=== PATIENT | female | born 1940 | race Caucasian/White ===

== ENCOUNTER 2021-06-30 12:26 | Emergency (ER) | payer MEDICARE ==
[~2021-06-30] VITALS: Ht 157.5 cm; Wt 64.0 kg
[~2021-06-30 12:26] MED LIST: ACETAMINOPHEN500 MG PO; ALLOPURINOL100 MG PO; ARMOUR THYROID90 MG PO; ASMANEX HFA13 G2 IH; CBD CREAM; DICLOFENAC SODI75 MG PO; GABAPENTIN300 MG PO; HYDROCODON-ACE1 EA10 PO; MOVE FREE ULTR1 EAC2 PO; OXYCODONE HCL5 MG PO; SINGULAIR10 MG PO; SPIRONOLACTONE1 EACH PO; SYMBICORT 16010.2 GM INH; XARELTO10 MG PO; XOPENEX0.63 MG/3 INH
== END 2021-06-30 16:40 | disposition home or self-care (01) ==
LOC: ED 12:26
DX: M79.89 Other specified soft tissue disorders (principal); J44.9 Chronic obstructive pulmonary disease, unspecified; E03.9 Hypothyroidism, unspecified; Z88.2 Allergy status to sulfonamides; Z88.8 Allergy status to other drugs, medicaments and biological substances; Z79.899 Other long term (current) drug therapy
CPT/HCPCS: 93971; 99283-25

== ENCOUNTER 2022-01-04 11:02 | Emergency (ER) | payer MEDICARE ==
[~2022-01-04] VITALS: Ht 157.5 cm; Wt 64.0 kg
--- OUTSIDE RECORDS SUMMARY | 2022-01-04 11:06 | XMS ---
PreManage Notification: ROYER ERNANDEZ Security Sales Secretary Events No recent Security Events currently on file [facility] There are no care providers on record at this time. Ziyad has no Care Guidelines for this patient. Rachelle VISIT COUNT (12 MO.) 2 [facility] Kelly TOTAL 2 NOTE: Visits indicate total known visits. ED/UCC VISIT TRACKING (12 MO.) 01/04/2022 11:03 [facility] [place] TYPE: Emergency COMPLAINT: - R HIP/LEG PAIN 06/30/2021 12:27 [facility] [place] TYPE: Emergency COMPLAINT: - LEG SWELLING DIAGNOSES: - Other chcf (current) drug therapy - Allergy status to sulfonamides - Chronic obstructive pulmonary disease, unspecified - Hypothyroidism, unspecified - Other specified soft tissue disorders - Pain in left leg - Allergy status to other drugs, medicaments and biological substances INPATIENT VISIT TRACKING (12 MO.) 06/27/2021 05:47 [facility] [place] TYPE: Surgery COMPLAINT: - LT TOTAL HIP REPLACEMENT DIAGNOSES: - Unilateral primary osteoarthritis, right hip [email or web address]
== END 2022-01-04 14:10 | disposition home or self-care (01) ==
LOC: ED 11:02
DX: S70.01XA Contusion of right hip, initial encounter (principal); W01.10XA Fall on same level from slipping, tripping and stumbling with subsequent striking against unspecified object, initial encounter; J44.9 Chronic obstructive pulmonary disease, unspecified; E03.9 Hypothyroidism, unspecified; Z88.2 Allergy status to sulfonamides; Z88.8 Allergy status to other drugs, medicaments and biological substances; Z79.899 Other long term (current) drug therapy
CPT/HCPCS: 73502; 99283-25

== ENCOUNTER 2022-05-12 19:40 | Emergency (ER) | payer MEDICARE ==
[~2022-05-12] VITALS: Ht 157.5 cm; Wt 71.8 kg
[~2022-05-12 19:40] MED LIST changes: +SENNA LAX8.6 MG PO; +VITAMIN C1000 MG PO
--- OUTSIDE RECORDS SUMMARY | 2022-05-12 19:42 | XMS ---
PreManage Notification: ROYER ERNANDEZ Security Engagement Quality Consultant Events No recent Security Events currently on file CRITERIA MET - [facility] There are no care providers on record at this time. Ziyad has no Care Guidelines for this patient. Rachelle VISIT COUNT (12 MO.) 3 MITCHEL Kelly TOTAL 3 NOTE: Visits indicate total known visits. ED/UCC VISIT TRACKING (12 MO.) 05/12/2022 19:40 [facility] [place] TYPE: Emergency COMPLAINT: - HAND SWELLING 01/04/2022 11:03 [facility] [place] TYPE: Emergency COMPLAINT: - R HIP/LEG PAIN DIAGNOSES: - Hypothyroidism, unspecified - Fall on same level from slipping, tripping and stumbling with subsequent striking against unspecified object, initial encounter - Chronic obstructive pulmonary disease, unspecified - Allergy status to sulfonamides - Allergy status to other drugs, medicaments and biological substances - Contusion of right hip, initial encounter - Pain in right hip - Other usp (current) drug therapy 06/30/2021 12:27 [facility]o [place] TYPE: Emergency COMPLAINT: - LEG SWELLING DIAGNOSES: - Allergy status to other drugs, medicaments and biological substances - Other specified soft tissue disorders - Chronic obstructive pulmonary disease, unspecified - Other usp (current) drug therapy - Pain in left leg - Hypothyroidism, unspecified - Allergy status to sulfonamides INPATIENT VISIT TRACKING (12 MO.) 06/27/2021 05:[address] [facility] [place] TYPE: Surgery COMPLAINT: - LT TOTAL HIP REPLACEMENT DIAGNOSES: - Unilateral primary osteoarthritis, right hip [email or web address]
[2022-05-12] MEDS ORDERED: BENZONATATE100 MG PO (19:55)
[2022-05-12] MEDS ORDERED: AMOX TR-K CLV1 EAC1 PO (19:58)
[2022-05-12] MEDS ORDERED: DOXYCYCLINE HY100 MG PO (21:08)
[2022-05-12] MEDS ORDERED: HYDROCODON-ACE1 EA10 PO (21:08)
[2022-05-13] MEDS ORDERED: OMEPRAZOLE20 MG PO (14:00)
[2022-05-13] MEDS ORDERED: SYMBICORT 16010.2 GM INH (14:01)
[2022-05-13] MEDS ORDERED: VITAMIN D325 MCG PO (14:03)
[2022-05-13] MEDS ORDERED: MOMETASONE FURO17 GM NAS (14:09)
[2022-05-13] MEDS ORDERED: LEVALBUTEROL TA15 GM INH (14:10)
== END 2022-05-12 22:32 | disposition home or self-care (01) ==
LOC: ED 19:40
DX: L03.113 Cellulitis of right upper limb (principal); J44.9 Chronic obstructive pulmonary disease, unspecified; M06.9 Rheumatoid arthritis, unspecified; Z88.2 Allergy status to sulfonamides; Z88.8 Allergy status to other drugs, medicaments and biological substances; Z79.899 Other long term (current) drug therapy; Z79.891 Long term (current) use of opiate analgesic
CPT/HCPCS: 36415; 73110; 73130; 80053; 85025; 85060; 90471; 90714; 96365; 99283-25; A9270; J3370; J7060

== ENCOUNTER 2022-05-13 09:41 | Inpatient (IN) | payer MEDICARE ==
[~2022-05-13] VITALS: Ht 157.5 cm; Wt 72.0 kg
[~2022-05-13 09:41] MED LIST changes: +AMOX TR-K CLV1 EAC1 PO; +BENZONATATE100 MG PO; +DOXYCYCLINE HY100 MG PO
--- OUTSIDE RECORDS SUMMARY | 2022-05-13 09:42 | XMS ---
PreManage Notification: ROYER ERNANDEZ Security Staff Rn Events No recent Security Events currently on file CRITERIA MET - [facility] - 2 Visits in 30 Days - [facility] PROVID[facility] There are no care providers on record at this time. Ziyad has no Care Guidelines for this patient. Rachelle VISIT COUNT (12 MO.) 4 [facility] 4 NOTE: Visits indicate total known visits. ED/C VISIT TRACKING (12 MO.) [facility] COMPLAINT: - EXTREMITY PAIN/INJURY 05/12/2022 19:40 [facility] [place] TYPE: Emergency COMPLAINT: - HAND SWELLING/NO INJ 01/04/2022 11:03 [facility] [place] TYPE: Emergency COMPLAINT: - R HIP/LEG PAIN DIAGNOSES: - Allergy status to other drugs, medicaments and biological substances - Contusion of right hip, initial encounter - Pain in right hip - Other intermediate manager (current) drug therapy - Hypothyroidism, unspecified - Fall on same level from slipping, tripping and stumbling with subsequent striking against unspecified object, initial encounter - Chronic obstructive pulmonary disease, unspecified - Allergy status to sulfonamides 06/30/2021 12:27 [facility] [place] TYPE: Emergency COMPLAINT: - LEG SWELLING DIAGNOSES: - Pain in left leg - Hypothyroidism, unspecified - Allergy status to sulfonamides - Allergy status to other drugs, medicaments and biological substances - Other specified soft tissue disorders - Chronic obstructive pulmonary disease, unspecified - Other intermediate manager (current) drug therapy INPATIENT VISIT TRACKING (12 MO.) 06/27/2021 05:[address] [facility] [place] TYPE: Surgery COMPLAINT: - LT TOTAL HIP REPLACEMENT DIAGNOSES: - Unilateral primary osteoarthritis, right hip [email or web address]
[2022-05-13] MEDS ORDERED: OMEPRAZOLE20 MG PO (14:00)
[2022-05-13] MEDS ORDERED: SYMBICORT 16010.2 GM INH (14:01)
[2022-05-13] MEDS ORDERED: VITAMIN D325 MCG PO (14:03)
[2022-05-13] MEDS ORDERED: MOMETASONE FURO17 GM NAS (14:09)
[2022-05-13] MEDS ORDERED: LEVALBUTEROL TA15 GM INH (14:10)
--- NOTE | 2022-05-13 14:10 | NUR ---
REPORT RECIEVED FROM DORINA
--- NOTE | 2022-05-13 14:36 | NUR ---
PT MOVED TO MED SURG STRETCHER. VS DONE. REINFORED USE OF CALL LIGHT AND WITHIN REACH. PURWICK PROVIDED DUE TO INCONTINCE. PT COMPLAINS OF PAIN MOSTLY TO LEFT HAND WITH MOVEMENT AND TOUCH, ELEVATED ON PILLOW. DAUGHTER AT BEDSIDE.
--- NOTE | 2022-05-13 16:15 | NUR ---
URINE SAMPLE ORDERED. STRAIGHT CATH URINE COLLECTED. PT TOLERATED WELL. 300MLS DARK, CLEAR, YELLOW URINE.
--- NOTE | 2022-05-13 16:15 | NUR ---
MED REC COMPLETE
--- NOTE | 2022-05-13 17:00 | NUR ---
pt provided ice water, denies further needs at this time. call light in reach.
--- NOTE | 2022-05-13 18:14 | NUR ---
PATIENT IN BED RESTING. VITALS AND I/O'S COMPLETED. PT HAS NO OTHER NEEDS AT THIS TIME. CALL LIGHT WITHIN REACH.
--- NOTE | 2022-05-13 18:50 | NUR ---
PT IN BED EATING DINNER. PT DENIES ANY NEEDS AT THIS TIME. CALL LIGHT WITHIN REACH.
--- NOTE | 2022-05-13 19:17 | NUR ---
RECEIVED REPORT FROM MARIELENA LEO RN. pt RESTING IN BED. REPORTS THAT HER PAIN IS "OKAY" RIGHT NOW AND DOES NOT WANT PAIN MEDICATION RIGHT NOW BUT WOULD LIKE SOMETHING LATER TONIGHT. NO FURTHER REQUESTS AT THIS TIME. CALL LIGHT WITHIN REACH.
--- NOTE | 2022-05-13 19:44 | NUR ---
PT. SOILED GOWN AND LINEN CHANGED APPROPRIATELY. PT. PROVIDED WITH FRESH WATER. CALL LIGHT LEFT WITHIN REACH. NO OTHER IMMEDIATE NEEDS AT THIS TIME.
--- NOTE | 2022-05-13 20:22 | NUR ---
PT. VITALS AND INAKE DOCUMENTED. CALL LIGHT LEFT WITHIN REACH. ROOM TIDIED. FRESH WATER PROVIDED. NO OTHER IMMEDIATE NEEDS AT THIS TIME.
--- NOTE | 2022-05-13 21:25 | NUR ---
ASSESSMENT DONE. pt AGREED TO GET UP TO VOID. pt REQUIRED 2PA TO EDGE OF BED. pt ABLE TO STAND AT BEDSIDE BUT UNSTEADY UNABLE TO AMBULATE SAFELY. ATTEMPTED 3 TIMES PER pt REQUEST. pt ASSISTED BACK TO BED. BOTH HANDS ARE SWOLLEN LEFT MORE SWOLLEN AND PAINFUL THAN RIGHT. BOTH KNEES ARE SWOLLEN. CALL LIGHT WITHIN REACH.
--- NOTE | 2022-05-13 22:37 | NUR ---
IN TO ASSESS pt. BLADDER SCANNED FOR 55MLS. CALLED DR MAKI. NEW ORDERS TO BOLUS THE REST OF THE BAG OF FLUID THAT IS CURRENTLY INFUSING THEN RESUME NORMAL FLUID RATE. OKAY TO STRAIGHT CATH IF BLADDER SCAN IS GREATER THAN 500MLS AND pt IS UNABLE TO VOID.
--- NOTE | 2022-05-14 00:05 | NUR ---
BLADDER SCAN COMPLETED, 33ML PRESENT. NEW BAG IV FLUIDS PROVIDED. NO OTHER NEEDS. CALL LIGHT IN REACH.
--- NOTE | 2022-05-14 02:06 | NUR ---
IN TO DO ASSESSMENT. pt REPORTS THE PAIN IN HER HANDS HAS RESOLVED. SWELLING APPEARS TO HAVE DECREASED SLIGHTLY IN HANDS. KNEES EDEMA UNCHANGED. BLADDER SCANNED FOR 135MLS. pt THOUGHT SHE MIGHT BE ABLE TO STAND. pt WAS ABLE TO MOVE BETTER THAN LAST ATTEMPT. ABLE TO STAND AND PIVOT TO [facility] MAX 2PA. VOID 100MLS CONCENTRATED URINE. STAND AND PIVOT 2PA BACK TO BED. ASSESSMENT AND VITALS DONE. CALL LIGHT WITHIN REACH.
--- NOTE | 2022-05-14 07:18 | NUR ---
RECIEVED SHIFT REPORT. PT AWAKE IN BED. DENIES FURTHER NEEDS AT THIS TIME. CALL LIGHT WITHIN REACH.
--- NOTE | 2022-05-14 08:25 | NUR ---
PATIENT SITTING UP IN BED FOR MEAL, BY REQUEST. AM CARE COMPLETED. PATIENT HAS NO OTHER NEEDS AT THIS TIME. CALL LIGHT WITHIN REACH.
--- NOTE | 2022-05-14 10:00 | NUR ---
MORNING ASSESSMENT COMPLETE. PT COMPLAINS OF 5/10 PAIN BILAT LOWER EXTREMITIES AND HANDS. PT STATES THE RIGHT HAND HURTS THE WORST THIS MORNING. SWELLING NOTED IN THE LEFT HAND WITH DECREASED REDDNESS. ELEVATED ON A PILLOW. MINIMAL SWELLING AND DECREASED REDDNESS ON RIGHT HAND. PT DENIES NUMBNESS/TINGLING IN UPPER EXT, BUT REPORTS CHRONIC NUMBNESS/TINGLING BILAT LOWER EXT. CMS INTACT. PT ABLE TO STAND 2 PERSON PIVOT TO THE BEDSIDE COMMODE THEN TO CHAIR WITHOUT DIFFICULTY. DAUGHTER AT BEDSIDE. CALL LIGHT WITHIN REACH.
--- NOTE | 2022-05-14 11:00 | NUR ---
CALLED DR GU WITH GRAM STAIN. NO NEW ORDERS RECIEVED.
--- NOTE | 2022-05-14 11:07 | NUR ---
PT IN CHAIR. PHYSCIAL THERAPY IN ROOM WORKING WITH PT.
--- NOTE | 2022-05-14 12:24 | NUR ---
PT UP IN CHAIR EATING LUNCH AT THIS TIME. CALL LIGHT WITHIN REACH.
--- NOTE | 2022-05-14 13:50 | NUR ---
PATIENT UP IN CHAIR LOOKING THROUGH BAG AFTER THE MEAL. VITALS AND I/O'S COMPLETED. PT HAS NO OTHER NEEDS AT THIS TIME. CALL LIGHT WITHIN REACH.
--- NOTE | 2022-05-14 14:40 | NUR ---
PT SITTING IN CHAIR WITH LEGS ELEVATED. PT DENIES ANY PAIN AT THIS TIME. PT STATES THE RIGHT HAND FEELS THE WORSE, BUT NO SWELLING/WARMTH NOTED. THE LEFT HAND REMAINS SWOLLEN, BUT NO REDDNESS/WARMTH NOTED. PT HAND PEANUT SALTER IS BILAT WEAK. LOWER EXTREMITIES BILAT SWELLING, 1+ EDEMA. PT SHOWS IMPROVEMENT IN ROM AND ABILITY IN USING HANDS.
--- NOTE | 2022-05-14 16:00 | NUR ---
PT IN CHAIR. DENIES ANY NEEDS THIS TIME. CALL LIGHT WITHIN REACH.
--- NOTE | 2022-05-14 17:00 | NUR ---
PT IN CHAIR WATCHING TV. DENIES FURTHER NEEDS. CALL LIGHT WITHIN REACH.
--- NOTE | 2022-05-14 17:36 | NUR ---
PATIENT SITTING UP IN CHAIR AFTER MEAL. VITALS AND I/O'S COMPLETED, PT HAS NO OTHER NEEDS AT THIS TIME. CALL LIGHT WITHIN REACH.
--- NOTE | 2022-05-14 18:49 | NUR ---
PT IN CHAIR. DENIES FURTHER NEEDS AT THIS TIME. CALL LIGHT WITHIN REACH.
--- NOTE | 2022-05-14 19:10 | NUR ---
BEDSIDE REPORT RECEIVED FROM OFFGOING RNJESSIAC. PT RESTING IN CHAIR. CALL LIGHT IN REACH.
--- NOTE | 2022-05-14 21:45 | NUR ---
PT ASSESSMENT COMPLETE. PT REPORTS PAIN 6/10 TO BILATERAL HANDS, PT REQUESTS PRN PAIN MEDCIATION. PT DENIES NAUSEA OR SOB. L HAND WITH BRUISING AND REDNESS, EDEMA PRESENT. R HAND WITH MINIMAL EDEMA. PT UP TO BATHROOM AND BACK TO BED WITH 1 PA AND FWW. PT TOLERATED WELL. IV FLUSHED WITH 1O ML NS, WNL. PATENT. PT DENIES FURTHER NEEDS AT THIS TIME. CALL LIGHT IN REACH.
--- NOTE | 2022-05-14 23:45 | NUR ---
PT RESTING IN BED AWAKE. DENIES NEEDS AT THIS TIME. CALLLIGHTIN REACH.
--- NOTE | 2022-05-15 02:30 | NUR ---
PT ROUNDING. PT RESTING IN BED WITH EYES CLOSED. IV PUMP ALARMING. PT DOES NOT WAKE WHILE OCEANOGRAPHY TEACHER AT BEDSIDE. RESPIRATIONS EVEN AND UNLABORED. CALL LIGHT IN REACH.
--- NOTE | 2022-05-15 05:18 | NUR ---
1 pa TO THE BATHROOM USING WALKER. ASSISTED IN ZOILA CARE. PATIENT IS BACK IN BED. V/S AND I&O'S TAKEN AND CHARTED. PRIMARY RN WAS WITH PATIENT.
--- NOTE | 2022-05-15 05:19 | NUR ---
PT UTLIZES CALLLIGHT FOR IV PUMP ALARMING. REQUESTS TO USE THE BATHROOM. PT UP TO BATHROOM AND BACK TO BED WITH 1 PA AND FWW. PT ASSESSMENT COMPLETE. PT DENIES PAIN, NAUSEA, OR SOB. BILATERAL HANDS WITH REDNESS, L HAND WITH 1+ EDEMA. BLE WITH GENERALIZED EDEMA. PT REPORTS CHRONIC NUMBNESS AND TINGLING TO BLE'S. IVF INFUSING ORDERED. PT DENIES FURTHER NEEDS AT THIS TIME. CALL LIGHT IN REACH.
--- NOTE | 2022-05-15 07:30 | NUR ---
THIS RN RECEIVED SHIFT REPORT FROM BRIAN SCHOFIELD. PATIENT RESTING IN BED AND VERBALIZES SHE IS COLD AND WANTS BLACK COFFEE. WARM BLANKET GIVEN AND BLACK COFFEE GIVEN. PATIENT HAD NO OTHER CARE NEEDS AT THIS TIME. CALL LIGHT IS IN REACH.
--- NOTE | 2022-05-15 08:41 | NUR ---
PATIENT'S FAMILY MEMBER OUT TO NURSE DESK REQUESTING TO SPEAK TO CASE MANAGEMENT. THIS RN WENT AND GOT BRIAN MANNING FROM TO GO IN AND TALK TO PATIENT AND FAMILY.
--- NOTE | 2022-05-15 09:15 | NUR ---
INTO PATIENTS ROOM, PATIENT DAUGHTER IN LAW BROOKS AT THE BEDSIDE. CASE MANAGEMENT ASSESSMENT COMPLETED. PATIENT AND BROOKS CONCERNED THAT THE PATIENT IS HAS SWELLING IN HER LEFT HAND THAT IS CAUSING HE TO DIFFICULTY WHEN TOLIETING. PATIENT STATES THAT SHE WOULD LIKE TO BE ABLE TO USE HER HAND A LITTLE BIT BETTER BEFORE DISCHARGE. ADVISED THAT THE PATIENT WILL HAVE VISIT WITH OT THIS AM WHO CAN HELP WITH FURTHER ASSISTANCE. ADVISED THAT I ALSO DID NOT BELIEVE SHE WOULD BE DISCHARGING AT LEAST UNTIL TOMORROW. PATIENT CONFIRMS THAT SHE LIVE ALONE WITH MANY ANIMALS. PATIENT DAUGHTER IN LAW STATES THAT HER AND OTHER FAMILY MEMEBERS ARE WILLING TO ASSIST THE PATIENT, BUT DO LIVE A DISTANCE FROM HER. PATIENT HAS WALKING STICKS AND WALKER AT HOME FROM PREVIOUS HI REPLACEMENT. SHE HAS NOT BEEN RELEASED TO DRIVE AT THIS TIME, BUT FAMILY IS ABLE TO ASSIST WITH GROCERIES AND OTHER HOUSEHOLD TASKS. PATIENT STATES SHE WISHES TO RETURN TO HOME AT DISCHARGE AND FEELS SAFE DOING SO. WILL CONTINUE TO CHECK IN WITH PATIENT DURING HER VISIT.
--- NOTE | 2022-05-15 09:48 | NUR ---
THIS RN IN TO ASSIST 1P AND FWW FROM THE RESTROOM TO BEDSIDE ARMCHAIR. AM ASSESSMENT COMPLETE. PATIENT STILL HAVING A LOT OF PROBLEM USING HER LEFT HAND AND SOME DIFFICULTY WITH RIGHT HAND WELL. NEW CALL LIGHT OBTAINED THAT IS EASIER TO PUSH AND SHE IS ABLE TO WORK IT WITH MINIMAL EFFORT. PATIENT IS FEELING A LITTLE SHORT OF BREATH AND REQUESTING HER INHALED STEROIDS AND HAS GIVEN THIS RN A VERBAL ORDER TO ORDER PATIENT'S HOME MEDICATION ROUTINELY HERE. PATIENT DENIED ANY OTHER NEEDS AT THIS TIME. 2 WARM BLANKETS GIVEN TO PATIENT IN BEDSIDE ARMCHAIR WITH LEGS ELEVATED. CALL LIGHT IN REACH.
--- NOTE | 2022-05-15 09:53 | NUR ---
PT IN CHAIR. VITALS AND IS AND OS COMPLETE. BED MADE. NO NEEDS. CALL LIGHT WITHIN REACH.
[2022-05-15] MEDS ORDERED: BENZONATATE100 MG PO (10:41)
--- NOTE | 2022-05-15 11:26 | NUR ---
THIS RN IN AND GAVE IV SOLUMEDROL. TRAE FROM PT IS IN THE ROOM WORKING WITH THE PATIENT. PATIENT B REATHING MUCH EASIER AFTER NEB TREATMENTS. IN THE ROOM LEETING PATIENT KNOW HE HAS ORDERED SOME DIAGNOSTIC IMAGING TO LOOK AT HER LIVER SINCE HER LIVER ENZYMES ARE ELEVATED. CALL LIGHT IN REACH. PATIENT HAS NO OTHER CARE NEEDS FROM THIS RN AT THIS TIME.
--- NOTE | 2022-05-15 11:43 | NUR ---
PATIENT NOW NPO UNTIL 7PM FOR HER ULTRASOUND. KITCHEN CONTACTED AND CANCELLED THE NEXT 2 MEALS AND THIS RN HAS REMOVED PATIENT'S WATER AND COFFEE. PATIENT UNDERSTANDS THE REASONING FOR NPO FOR STUDY. PATIENT HAS NO OTHER CARE NEEDS AT THIS TIME. CALL LIGHT IN REACH.
--- NOTE | 2022-05-15 12:40 | NUR ---
THIS RN IN FOR BEEPING PUMP. NEW BAG OF IV FLUIDS HUNG BY THIS RN. THIS RN ALSO GOT PATIENT'S CHAPSTICK FOR HER. PATIENT CALL LIGHT IN REACH AND SHE HAS NO OTHER CARE NEEDS AT THIS TIME.
--- NOTE | 2022-05-15 13:00 | NUR ---
PT was in chair and engaged in lengthy and lively conversation. Appeared to understand and was able to describe medical issues. Talked of extended family and of her home life. Appeared to be in good spirit. Expressed satisfaction with care. Said prayer for comfort and healing.
--- NOTE | 2022-05-15 13:46 | NUR ---
THIS RN IN AND GAVE ANTIBIOTIC WITH SIP OF WATER. PATIENT FEELING A LITTLE NAUSEATED AND 4MG IV ZOFRAN GIVEN WELL. PATIENT FRUSTRATED ABOUT BEING NPO FOR HER TEST. THIS RN EXPLAINED AGAIN THE REASONS FOR BEING NPO AND PATIENT VERBALIZED UNDERSTANDING. CALL LIGHT IN REACH. PATIENT HAS NO OTHER CARE NEEDS AT THIS TIME.
--- NOTE | 2022-05-15 14:04 | NUR ---
PT IN CHAIR. VITALS AND IS AND OS COMPLETE. NO NEEDS. CALL LIGHT WITHIN REACH.
--- NOTE | 2022-05-15 15:23 | NUR ---
PATIENT'S DAUGHTER IN ROOM ASKING IF SHE CAN BRING PATIENT FOOD IN TONIGHT AFTER HER ULTRASOUND AND I INFORMED HER SHE COULD. PATIENT SAYS THE ZOFRAN DID HELP WITH HER NAUSEA. AFTERNOON ASSESSMENT COMPLETE. PATIENT HAS NO OTHER CARE NEEDS AT THIS TIME. PATIENT REMAINS NPO.
--- NOTE | 2022-05-15 17:36 | NUR ---
PATIENT CONTINUES TO REST PLAYING ON HER PHONE SITTING UP IN THE BEDSIDE ARMCHAIR. PATIENT HAS NO CURRENT NURSE CARE NEEDS. CALL LIGHT IS IN REACH.
--- NOTE | 2022-05-15 18:22 | NUR ---
THIS RN IN AND 1PA WITH FWW TO THE RESTROOM AND BACK TO THE BEDSIDE ARMCHAIR. PATIENT AWAITING TO GO TO ULTRASOUND AT 1900. PATIENT HAS MISSED THE HAT THE LAST 2 TIMES SHE HAS VOIDED. PATIENT HAS NO OTHER CARE NEEDS AT THIS TIME. CALL LIGHT IS IN REACH.
--- NOTE | 2022-05-15 18:34 | NUR ---
PATIENT ASKED FOR A NEB TREAMENT AND RT IS HERE ADMINISTERING THAT AT THIS TIME.
--- NOTE | 2022-05-15 19:32 | NUR ---
BEDSIDE REPORT RECEIVED FROM OFFGOING RN, LUCIE. PT SITTING IN CHAIR WOOL BRUSHER ARRIVES. PT ASSISTED FROM CHAIR TO BED WITH 1 PA AND FWW. TOLERATED WELL. WARM BLANKETS PROVIDED. PT DENIES NEEDS. CALLLIGHT IN REACH. US TECH AT BEDSIDE.
--- NOTE | 2022-05-15 21:03 | NUR ---
PT ASSESSMENT COMPLETE. PT SITTING IN BED. PT STATES FRUSTRATION AT LACK OF TV AND INABILITY TO EAT TODAY. ASSISTED PT TO CONNECT PHONE TO [employer]. PT THANKFUL. PT ASSISTED TO BATHROOM AND BACK TO BED WITH 1PA AND FWW. TOLERATED WELL. PT ASSESSMENT COMPLETE. PT REPORTS PAIN TO HANDS /10, PT REQUESTS PRN PAIN MED. TO BE ADMINISTERED. PT DENIES SOB AND NAUSEA. BT'S ACTIVE. ABD TENDER TO PALPATION, PT STATES THIS IS DUE TO RECENT ABD ULTRASOUND. PT REPORTS FREQUENT FLATUS. BILATERAL HANDS WITH TRACE EDEMA, L HAND WITH KINESIO TAPE PLACED BY PT. R KNEE WITH GENERALIZED EDEMA. PT REPORTS TINGLING TO ALL EXTREMITIES AT THIS TIME. IV FLUSHED WITH 10 ML NS. WNL, PATENT. PT DENIES FURTHER NEEDS AT THIS TIME. WARM BLANKETS PROVIDED. CALL LIGHT IN REACH.
--- NOTE | 2022-05-16 00:05 | NUR ---
PT ROUNDING. PT FOUND RESTING IN BED AWAKE. PT UP TO BATHROOM AND BACK TO BED WITH 1 PA AND FWW. PT STATES THAT SHE GOT TOO HOT, WAS DIAPHORETIC WHILE SLEEPING. BED LINENS CHANGED, PT'S GOWN AND UNDERPANTS CHANGED. PT DENIES FURTHER NEEDS AT THIS TIME. STATES THAT PAIN IS WELL CONTROLLED. CALL LIGHT IN REACH.
--- NOTE | 2022-05-16 03:55 | NUR ---
PT RESTING IN BED WITH EYES CLOSED. RESPIRATIONS EVEN AND UNLABORED. PT DOES NOT WAKE WHILE SHERIFF'S SERGEANT AT BEDSIDE. CALL LIGHT IN REACH.
--- NOTE | 2022-05-16 05:43 | NUR ---
PT ASSESSMENT COMPLETE. PT RESTING IN BED AWAKE. STATES THAT PAIN IS WELL CONTROLLED. DENIES SOB OR NAUSEA. TRACE EDEMA CONTINUES IN B HANDS. GENERALIZED EDEMA TO R KNEE. PT CONTINUES TO REPORT NUMBNESS AND TINGLING TO ALL EXTREMITIES. R HAND EMPLOYMENT DIRECTOR STRENGTH IS WEAKER THAN L. STRENGTH IS EQUAL IN BLE'S. IVF INFUSING ORDERED. ICE WATER REFILLED. PT DENIES FURTHER NEEDS AT THIS TIME. CALL LIGHT IN REACH.
--- NOTE | 2022-05-16 07:22 | NUR ---
THIS RN RECEIVED SHIFT REPORT FROM BRIAN SCHOFIELD. PATIENT AWAKE IN BED WATCHING TV AND DENIES ANY CARE NEEDS AT THIS TIME. CALL LIGHT IN REACH.
--- NOTE | 2022-05-16 08:23 | NUR ---
THIS RN IN TO SEE PATIENT AND AM ASSESSMENT DONE. THIS RN SET UP PATIENT'S BREAKFAST FOR HER , BUTTERED BISCUITS AND JAM, PEPPERED AND KETCHUPED EGGS, AND ICE WATER REFILLED. CALL LIGHT IN REACH. AM MEDS GIVEN. PATIENT HAD NO OTHER CARE NEEDS AT THIS TIME.
--- NOTE | 2022-05-16 10:42 | NUR ---
THIS RN IN TO RECONNECT PATIENT'S IV FLUIDS NOW THAT SHE IS DONE WITH HER SHOWER. IV FLUIDS RESTRTED AND IV FLUSHED WELL. PATIENT VISITING WITH HER GRANDSON JENNIFER. CALL LIGHT IN REACH AND PATIENT HAS NO OTHER CARE NEEDS AT THIS TIME.
--- NOTE | 2022-05-16 12:15 | NUR ---
THIS RN IN AND ADMINISTERED PATIENT SOLU-MEDROL IV SIVP. PATIENT IS SET UP FOR LUNCH IN HER BEDSIDE ARMCHAIR AND IS EATING HER HAMBURGER AND WATCHING TV. PATIENT HAS NO CURRENT RN CARE NEEDS. CALL LIGHT IS IN REACH.
--- NOTE | 2022-05-16 14:10 | NUR ---
THIS RN IN AND AND AFTERNOON ASSESSMENT COMPLETE. SCHEDULED MEDS GIVEN. CM HERE TO TALK WITH PATIENT. 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 NEW ICE WATER GIVEN. LEAVING PATIENT TO TALK WITH CM. CALL LIGHT IN REACH.
--- NOTE | 2022-05-16 14:51 | NUR ---
JUST GAVE THIS RN A VERBAL ORDER TO NS LOCK PATIENT'S IV SHE IS SCHEDULED TO GO HOME TOMORROW. IV NS LOCKED BY THIS RN. PATIENT UP TO THE RESTROOM WITH AGRONOMY SPECIALIST'S AT THIS TIME.
--- NOTE | 2022-05-16 15:02 | NUR ---
PT IN TO WORK WITH PATIENT AT THIS TIME.
--- NOTE | 2022-05-16 15:30 | NUR ---
Spoke with pt and her daughter. Pt plans on dc to home tomorrow. She would like to resume her OP PT and start OT as they have been taping her hand here. They deny other needs. Pt lives alone, but family farm nearby and check on her daily. She denies other needs.
--- NOTE | 2022-05-16 17:44 | NUR ---
PATIENT REMAINS UP IN THE BEDSIDE ARMCHAIR EATING HER DINNER AT THIS TIME. PATIENT HAS NO OTHER CARE NEEDS AT THIS TIME.
[2022-05-16] MEDS ORDERED: CLINDAMYCIN HC300 MG PO (18:20)
[2022-05-16] MEDS ORDERED: PREDNISONE10 MG PO (18:24)
--- NOTE | 2022-05-16 19:05 | NUR ---
REPORT FROM LUCIE Lunsford RN, PT WHITE BOARD UPDATED, CALL LIGHT IN REACH - DENIES NEEDS. PT R HIP OPEN TO AIR - FROM RECENT HIP REPLACEMENT - WELL APPROXIMATED - WNL - [facility] WNL. SL R ARM WNL.
--- NOTE | 2022-05-16 20:54 | NUR ---
PO MEDS GIVEN, NORCO GIVEN PER PT REQUEST TO HELP WITH SLEEP AND PAIN - 08/15
--- NOTE | 2022-05-16 22:21 | NUR ---
PT CALLED, UP TO BATHROOM, FWW, ENCOURAGED TTWB, INDEPENDENTLY CLEANED SELF AFTER, BACK TO BED, NEEDED HELP PUTTING LEGS INTO BED, STATES SHE SLEEPS IN A RECLINER CHAIR, BECAUSE HER BEDROOM IS UPSTAIRS AND SHE IS UNABLE TO GET THERE. PRIOR TO GETTING UP, SHE SAID SHE THOUGHT SHE COULD GET UP BY HERSELF BUT KNOWS NOT TO. TOLD HER THAT IF SHE FELL, SHE WOULD INJURE SELF WORSE. SHE STATES SHE FALLS AT HOME. PLANS TO [place] TOMORROW WHERE SHE WILL "SLEEP IN A RECLINER CHAIR". CALL LIGHT WITHIN REACH. NO OTHER NEEDS.
--- NOTE | 2022-05-17 01:50 | NUR ---
pt amb with fww to br to void, 100 ml urine plus missed hat. amb back to bed, denies needs, call light in reach.
--- NOTE | 2022-05-17 06:20 | NUR ---
PT AWAKE DRINKING COFFEE, PO MEDS TOLLERATED WELL - PT ONLY COMPLAINT IS SORE R KNEE. DENIES PAIN MEDS, CALL LIGHT IN REACH.
--- NOTE | 2022-05-17 07:50 | NUR ---
REPORT RECEIVED. RT AT BEDSIDE ADMINSTERING A NEB TREATMENT. PT IS ALERT AND ORIENTED. CALL LGIHT IN REACH. CENIES NEEDS.
[2022-05-17] MEDS ORDERED: SPIRONOLACTONE1 EACH PO (08:06)
--- NOTE | 2022-05-17 09:49 | NUR ---
ASSESSMENT COMPLETED. PT ASSISTED TO BATHROOM. DRESSED SELF WITH NO ASISSTANCE. IV DC'DAND WNL. VITALS TAKEN AND STABLE. PT IS AAOX4. SON-IN-LAW AT BEDSIDE. DISCHARGE INSRUCTIONS PROVIDED. PHARMACY IN TO DISCUSS MEDS. ALL QUATIONS ANSWERED.
== END 2022-05-17 09:45 | disposition home or self-care (01) | DRG 547 ==
LOC: ED 09:41 → MS 09:42
PROVIDERS: ADMIT Family Medicine; ATTEND Internal Medicine
PROC: 0S9C3ZX Drainage of Right Knee Joint, Percutaneous Approach, Diagnostic (ICD-10-PCS; principal; 2022-05-13)
DX: M35.3 Polymyalgia rheumatica (principal); M10.9 Gout, unspecified; E87.6 Hypokalemia; R73.9 Hyperglycemia, unspecified; Z66 Do not resuscitate; T38.0X5A Adverse effect of glucocorticoids and synthetic analogues, initial encounter; Z20.822 Contact with and (suspected) exposure to COVID-19; Z88.2 Allergy status to sulfonamides; Z88.8 Allergy status to other drugs, medicaments and biological substances; E78.00 Pure hypercholesterolemia, unspecified; I25.10 Atherosclerotic heart disease of native coronary artery without angina pectoris; I10 Essential (primary) hypertension; Z96.643 Presence of artificial hip joint, bilateral; Z90.49 Acquired absence of other specified parts of digestive tract; Z98.890 Other specified postprocedural states; Z79.899 Other long term (current) drug therapy
CPT/HCPCS: 36415; 71045; 76705; 80053; 80074; 81001; 82945; 83036; 83735; 84157; 84550; 85025; 85651; 86140; 87070; 87075; 87088; 87205; 87502; 89051; 89060; 93970; 94640; 94760; 96374; 97110; 97116; 97162; 97530; 97760; 99285-25; A9270; C9803; J2405; J2930; J3475; J7030; U0003

== ENCOUNTER 2024-02-29 15:25 | Emergency (ER) | payer MEDICARE ==
[~2024-02-29] VITALS: Ht 157.5 cm; Wt 81.3 kg
[~2024-02-29 15:25] MED LIST changes: +CLINDAMYCIN HC300 MG PO; +LEVALBUTEROL TA15 GM INH; +MOMETASONE FURO17 GM NAS; +OMEPRAZOLE20 MG PO; +PREDNISONE10 MG PO; +TRAMADOL HCL50 MG PO; +VITAMIN D325 MCG PO
[2024-02-29 17:25] VITALS: BP 00/00
== END 2024-02-29 17:25 ==
LOC: ED 15:25
DX: R09.2 Respiratory arrest (principal); J44.9 Chronic obstructive pulmonary disease, unspecified; Z88.2 Allergy status to sulfonamides; Z91.018 Allergy to other foods; Z88.8 Allergy status to other drugs, medicaments and biological substances; Z79.899 Other long term (current) drug therapy; Z66 Do not resuscitate
CPT/HCPCS: 71045; 99285